=== PATIENT | female | born 1945 | race African-American/Black ===

== ENCOUNTER 2022-05-15 22:08 | Inpatient (IN) | payer MEDICARE ==
[~2022-05-15] VITALS: Ht 165.1 cm; Wt 80.0 kg
[2022-05-15] MEDS ORDERED: SODIUM CHLORIDE 0.9% 1,000 ML IV ONE (22:45)
[2022-05-16 02:50] LABS: EOSINOPHILS % 0.4 % (0.0-5.0); HEMATOCRIT. 33.2 % (36.0-48.0); LYMPHOCYTES % 16.2 % (20.0-50.0); MEAN CORPUSCULAR HEMOGLOBIN 26.3 pg (28.0-32.0); MEAN CORPUSCULAR VOLUME 79.5 fL (81.0-99.0); MEAN PLATELET VOLUME 9.1 fl (7.4-10.4); NEUTROPHILS % 76.4 % (40.0-76.0); PLATELET 198 x1000/uL (130-400); RED BLOOD CELL COUNT 4.18 mill/uL (4.2-5.4); RED CELL DISTRIBUTION WIDTH 14.5 % (11.6-14.6)
[2022-05-16 03:54] LABS: CHLORIDE 107 mEq/L (98-107)
[2022-05-16 10:24] LABS: CLARITY URINE CLEAR (CLEAR); COLOR URINE YELLOW (YELLOW); KETONES URINE NEGATIVE (NEGATIVE); LEUKOCYTE ESTERASE URINE NEGATIVE (NEGATIVE); NITRITE URINE NEGATIVE (NEGATIVE); OCCULT BLOOD URINE NEGATIVE (NEGATIVE); PH URINE 5.5 (4.5-8.0); PROTEIN URINE 2+ (NEGATIVE); SPECIFIC GRAVITY URINE 1.018 (1.005-1.030); UROBILINOGEN URINE 0.2 E.U./dL (0.2-1.0)
[2022-05-16] MEDS ORDERED: ONDANSETRON HCL 4MG/2ML INJ IV PRN (16:15)
[2022-05-16] MEDS ORDERED: IPRATROPIUM/ALBUTEROL 0.5-3(2.5)MG/3ML NEB HHN PRN (16:15)
[2022-05-16] MEDS ORDERED: ACETAMINOPHEN 325MG TABLET PO PRN (16:15)
[2022-05-16 21:53] VITALS: BP 161/79
[2022-05-16] MEDS: BLOOD SUGAR DIAGNOSTIC STRIP TEST SCH (21:57)
[2022-05-16] MEDS ORDERED: DEXTROSE 50% WATER 50ML SYRINGE IV PRN (22:00)
[2022-05-16] MEDS: INSULIN LISPRO 100 UNITS/ML SUBCUT SCH (22:10)
[2022-05-16 23:15] VITALS: BP 161/79
[2022-05-16] MEDS ORDERED: PNEUMOCOCCAL 23-VAL P-SAC VAC 0.5 ML IM ONE (23:30)
[2022-05-16 23:57] LABS: CREATINE KINASE MB FRACTION 3.8 ng/mL (0.5-3.6)
[2022-05-17] VITALS (8 sets, daily range): BP systolic 120–173; BP diastolic 71–91
[2022-05-17] MEDS: CLONIDINE 0.1MG TABLET PO PRN (00:55)
[2022-05-17] MEDS: BLOOD SUGAR DIAGNOSTIC STRIP TEST SCH ×4 (06:24→21:22)
[2022-05-17] MEDS: INSULIN LISPRO 100 UNITS/ML SUBCUT SCH ×4 (07:34→21:24)
[2022-05-17] MEDS ORDERED: LISI-186 PO (15:52)
[2022-05-17] MEDS ORDERED: CHOL400D7 PO (15:52)
[2022-05-17] MEDS ORDERED: AMLO10TA80 PO (15:52)
[2022-05-17] MEDS ORDERED: LANTUSUD SUBCUT (15:52)
[2022-05-17] MEDS ORDERED: MEMA10TA55 PO (15:52)
[2022-05-17] MEDS ORDERED: BECL10.62 INH (15:52)
[2022-05-17] MEDS ORDERED: TOLT2CAP21 PO (15:52)
[2022-05-17] MEDS ORDERED: DONE5TAB33 PO (15:53)
[2022-05-18 04:00] VITALS: BP 150/85
[2022-05-18] MEDS: BLOOD SUGAR DIAGNOSTIC STRIP TEST SCH ×4 (06:40→21:12)
[2022-05-18] MEDS: INSULIN LISPRO 100 UNITS/ML SUBCUT SCH ×4 (06:43→21:22)
[2022-05-18 08:00] VITALS: BP_SYST 135; BP_SYST 147; BP_DIAS 69; BP_DIAS 76
[2022-05-18 12:00] VITALS: BP 122/80
[2022-05-18 14:51] VITALS: BP 18/125
[2022-05-18 16:00] VITALS: BP 135/89
[2022-05-18 20:00] VITALS: BP 110/76
[2022-05-19] VITALS (7 sets, daily range): BP systolic 107–163; BP diastolic 61–106
[2022-05-19 01:27] LABS: EOSINOPHILS % 2.1 % (0.0-5.0); HEMATOCRIT. 32.4 % (36.0-48.0); HEMOGLOBIN. 10.8 g/dL (12.0-16.0); MEAN CORPUSCULAR HEMOGLOBIN 26.5 pg (28.0-32.0); MEAN CORPUSCULAR VOLUME 79.6 fL (81.0-99.0); MEAN PLATELET VOLUME 9.5 fl (7.4-10.4); MONOCYTES % 9.1 % (2.0-8.0); NEUTROPHILS % 62.8 % (40.0-76.0); PLATELET 153 x1000/uL (130-400); RED BLOOD CELL COUNT 4.07 mill/uL (4.2-5.4); RED CELL DISTRIBUTION WIDTH 14.6 % (11.6-14.6)
[2022-05-19 01:30] LABS: CHLORIDE 107 mEq/L (98-107)
[2022-05-19] MEDS: BLOOD SUGAR DIAGNOSTIC STRIP TEST SCH ×4 (06:57→20:57)
[2022-05-19] MEDS: INSULIN LISPRO 100 UNITS/ML SUBCUT SCH ×4 (07:03→21:03)
[2022-05-19] MEDS: CLONIDINE 0.1MG TABLET PO PRN (14:12)
[2022-05-20] VITALS: BP 115/66
[2022-05-20 04:00] VITALS: BP 122/62
[2022-05-20] MEDS: INSULIN LISPRO 100 UNITS/ML SUBCUT SCH ×4 (07:05→21:44)
[2022-05-20] MEDS: BLOOD SUGAR DIAGNOSTIC STRIP TEST SCH ×4 (07:05→21:44)
[2022-05-20 08:33] VITALS: BP 107/68
[2022-05-20 12:00] VITALS: BP 136/67
[2022-05-20 16:00] VITALS: BP 133/69
[2022-05-20 20:00] VITALS: BP 145/72
[2022-05-21] VITALS: BP 135/63
[2022-05-21 04:00] VITALS: BP 133/66
[2022-05-21] MEDS: BLOOD SUGAR DIAGNOSTIC STRIP TEST SCH ×4 (06:04→21:00)
[2022-05-21] MEDS: INSULIN LISPRO 100 UNITS/ML SUBCUT SCH ×4 (06:04→22:48)
[2022-05-21 08:00] VITALS: BP 139/85
[2022-05-21 11:29] VITALS: BP 143/73
[2022-05-21 15:38] VITALS: BP 139/71
[2022-05-21 22:00] VITALS: BP 158/81
[2022-05-22] VITALS: BP 144/72
[2022-05-22 04:00] VITALS: BP 145/72
[2022-05-22] MEDS: BLOOD SUGAR DIAGNOSTIC STRIP TEST SCH ×4 (05:38→21:00)
[2022-05-22] MEDS: INSULIN LISPRO 100 UNITS/ML SUBCUT SCH ×4 (06:26→21:12)
[2022-05-22 08:00] VITALS: BP 151/79
[2022-05-22 12:00] VITALS: BP 152/84
[2022-05-22 16:00] VITALS: BP 162/78
[2022-05-22] MEDS: CLONIDINE 0.1MG TABLET PO PRN (16:35)
[2022-05-22 20:00] VITALS: BP 130/67
[2022-05-23] VITALS: BP 130/77
[2022-05-23 04:00] VITALS: BP 133/70
[2022-05-23] MEDS: BLOOD SUGAR DIAGNOSTIC STRIP TEST SCH ×4 (05:42→21:11)
[2022-05-23] MEDS: INSULIN LISPRO 100 UNITS/ML SUBCUT SCH ×4 (06:13→21:14)
[2022-05-23 08:00] VITALS: BP 168/72
[2022-05-23 12:00] VITALS: BP 126/72
[2022-05-23 16:00] VITALS: BP 128/68
[2022-05-23 20:00] VITALS: BP 130/72
[2022-05-23 20:59] LABS: BASOPHILS % 1.1 % (0.0-2.0); EOSINOPHILS % 2.8 % (0.0-5.0); HEMATOCRIT. 32.4 % (36.0-48.0); HEMOGLOBIN. 10.4 g/dL (12.0-16.0); LYMPHOCYTES % 31.3 % (20.0-50.0); MEAN CORPUSCULAR HEMOGLOBIN 26.1 pg (28.0-32.0); MEAN CORPUSCULAR VOLUME 81.1 fL (81.0-99.0); MEAN PLATELET VOLUME 9.6 fl (7.4-10.4); NEUTROPHILS % 51.8 % (40.0-76.0); PLATELET 118 x1000/uL (130-400); RED CELL DISTRIBUTION WIDTH 14.2 % (11.6-14.6)
[2022-05-24] VITALS: BP 142/81
[2022-05-24 04:00] VITALS: BP 137/80
[2022-05-24] MEDS: BLOOD SUGAR DIAGNOSTIC STRIP TEST SCH ×4 (05:45→21:06)
[2022-05-24] MEDS: INSULIN LISPRO 100 UNITS/ML SUBCUT SCH ×4 (05:45→21:20)
[2022-05-24 08:00] VITALS: BP 135/84
[2022-05-24 12:00] VITALS: BP 139/81
[2022-05-24 16:00] VITALS: BP 133/74
[2022-05-24 20:00] VITALS: BP 150/77
[2022-05-25] VITALS: BP 128/74
[2022-05-25 04:00] VITALS: BP 144/76
[2022-05-25] MEDS: INSULIN LISPRO 100 UNITS/ML SUBCUT SCH ×4 (06:02→21:00)
[2022-05-25] MEDS: BLOOD SUGAR DIAGNOSTIC STRIP TEST SCH ×4 (06:02→21:00)
[2022-05-25 08:00] VITALS: BP 147/78
[2022-05-25 12:00] VITALS: BP 149/74
[2022-05-25 16:00] VITALS: BP 163/78
[2022-05-25 20:00] VITALS: BP 151/72
[2022-05-26] VITALS: BP 139/79
[2022-05-26 04:00] VITALS: BP 139/82
[2022-05-26] MEDS: INSULIN LISPRO 100 UNITS/ML SUBCUT SCH ×4 (06:39→21:53)
[2022-05-26] MEDS: BLOOD SUGAR DIAGNOSTIC STRIP TEST SCH ×4 (06:39→21:13)
[2022-05-26 08:00] VITALS: BP 140/62
[2022-05-26 12:00] VITALS: BP 139/70
[2022-05-26 16:00] VITALS: BP 138/75
[2022-05-26 20:00] VITALS: BP 148/78
[2022-05-26 21:03] LABS: BASOPHILS % 0.9 % (0.0-2.0); EOSINOPHILS % 2.6 % (0.0-5.0); HEMOGLOBIN. 11.2 g/dL (12.0-16.0); LYMPHOCYTES % 29.5 % (20.0-50.0); MEAN CORPUSCULAR HEMOGLOBIN 26.4 pg (28.0-32.0); MEAN CORPUSCULAR VOLUME 80.6 fL (81.0-99.0); MEAN PLATELET VOLUME 10.2 fl (7.4-10.4); MONOCYTES % 7.7 % (2.0-8.0); NEUTROPHILS % 59.3 % (40.0-76.0); PLATELET 183 x1000/uL (130-400); RED BLOOD CELL COUNT 4.23 mill/uL (4.2-5.4); RED CELL DISTRIBUTION WIDTH 14.1 % (11.6-14.6)
[2022-05-26] MEDS: FAMOTIDINE 20MG TABLET PO SCH (21:52)
[2022-05-27] VITALS: BP 142/72
[2022-05-27 04:00] VITALS: BP 140/80
[2022-05-27] MEDS: BLOOD SUGAR DIAGNOSTIC STRIP TEST SCH ×4 (06:51→20:27)
[2022-05-27] MEDS: INSULIN LISPRO 100 UNITS/ML SUBCUT SCH ×4 (06:59→20:27)
[2022-05-27 08:00] VITALS: BP 125/67
[2022-05-27 12:00] VITALS: BP 147/70
[2022-05-27 16:00] VITALS: BP 154/69
[2022-05-27 20:00] VITALS: BP 139/77
[2022-05-27] MEDS: FAMOTIDINE 20MG TABLET PO SCH (20:27)
[2022-05-28] VITALS: BP 147/78
[2022-05-28 04:00] VITALS: BP 150/72
[2022-05-28] MEDS: INSULIN LISPRO 100 UNITS/ML SUBCUT SCH ×4 (06:28→20:29)
[2022-05-28] MEDS: BLOOD SUGAR DIAGNOSTIC STRIP TEST SCH ×4 (06:28→20:24)
[2022-05-28 08:00] VITALS: BP 147/82
[2022-05-28 12:00] VITALS: BP 148/75
[2022-05-28 16:00] VITALS: BP 144/74
[2022-05-28 20:00] VITALS: BP 139/76
[2022-05-28] MEDS: FAMOTIDINE 20MG TABLET PO SCH (20:24)
[2022-05-29] VITALS: BP 139/82
[2022-05-29 04:00] VITALS: BP 137/79
[2022-05-29] MEDS: BLOOD SUGAR DIAGNOSTIC STRIP TEST SCH ×4 (06:27→21:18)
[2022-05-29] MEDS: INSULIN LISPRO 100 UNITS/ML SUBCUT SCH ×4 (06:28→21:19)
[2022-05-29 08:00] VITALS: BP 141/79
[2022-05-29 12:00] VITALS: BP 136/85
[2022-05-29 16:00] VITALS: BP 147/83
[2022-05-29 20:03] VITALS: BP 123/80
[2022-05-29] MEDS: FAMOTIDINE 20MG TABLET PO SCH (21:18)
[2022-05-30 00:03] VITALS: BP 140/84
[2022-05-30 04:03] VITALS: BP 120/75
[2022-05-30] MEDS: BLOOD SUGAR DIAGNOSTIC STRIP TEST SCH ×4 (06:06→21:22)
[2022-05-30] MEDS: INSULIN LISPRO 100 UNITS/ML SUBCUT SCH ×4 (06:13→21:00)
[2022-05-30 06:37] LABS: BASOPHILS % 1.1 % (0.0-2.0); EOSINOPHILS % 2.2 % (0.0-5.0); HEMATOCRIT. 34.5 % (36.0-48.0); HEMOGLOBIN. 11.6 g/dL (12.0-16.0); MEAN CORPUSCULAR HEMOGLOBIN 26.5 pg (28.0-32.0); MEAN CORPUSCULAR VOLUME 78.9 fL (81.0-99.0); MONOCYTES % 7.5 % (2.0-8.0); NEUTROPHILS % 62.2 % (40.0-76.0); PLATELET 179 x1000/uL (130-400); RED BLOOD CELL COUNT 4.37 mill/uL (4.2-5.4); RED CELL DISTRIBUTION WIDTH 14.1 % (11.6-14.6)
[2022-05-30 06:53] LABS: CHLORIDE 107 mEq/L (98-107)
[2022-05-30 08:00] VITALS: BP 137/86
[2022-05-30 12:00] VITALS: BP 131/83
[2022-05-30 16:00] VITALS: BP 140/85
[2022-05-30 20:35] VITALS: BP 164/87
[2022-05-30] MEDS: CLONIDINE 0.1MG TABLET PO PRN (21:22)
[2022-05-30] MEDS: FAMOTIDINE 20MG TABLET PO SCH (21:22)
[2022-05-31] VITALS: BP 104/59
[2022-05-31 04:00] VITALS: BP 105/69
[2022-05-31] MEDS: INSULIN LISPRO 100 UNITS/ML SUBCUT SCH ×4 (06:42→21:59)
[2022-05-31] MEDS: BLOOD SUGAR DIAGNOSTIC STRIP TEST SCH ×4 (06:42→20:53)
[2022-05-31 08:00] VITALS: BP 127/70
[2022-05-31 11:55] VITALS: BP 140/65
[2022-05-31 16:00] VITALS: BP 130/73
[2022-05-31 20:00] VITALS: BP 135/75
[2022-05-31] MEDS: FAMOTIDINE 20MG TABLET PO SCH (21:45)
[2022-06-01] VITALS: BP 139/79
[2022-06-01 04:00] VITALS: BP 141/82
[2022-06-01] MEDS: BLOOD SUGAR DIAGNOSTIC STRIP TEST SCH ×4 (06:29→21:00)
[2022-06-01] MEDS: INSULIN LISPRO 100 UNITS/ML SUBCUT SCH ×4 (06:29→21:10)
[2022-06-01 08:00] VITALS: BP 133/81
[2022-06-01 12:00] VITALS: BP 130/84
[2022-06-01 16:00] VITALS: BP 142/70
[2022-06-01 20:00] VITALS: BP 147/79
[2022-06-01] MEDS: FAMOTIDINE 20MG TABLET PO SCH (21:10)
[2022-06-02] VITALS (7 sets, daily range): BP systolic 122–152; BP diastolic 69–97
[2022-06-02] MEDS: INSULIN LISPRO 100 UNITS/ML SUBCUT SCH ×4 (07:10→21:11)
[2022-06-02] MEDS: BLOOD SUGAR DIAGNOSTIC STRIP TEST SCH ×4 (07:39→21:09)
[2022-06-02] MEDS: FAMOTIDINE 20MG TABLET PO SCH (21:10)
[2022-06-03] VITALS (7 sets, daily range): BP systolic 140–161; BP diastolic 74–91
[2022-06-03] MEDS: BLOOD SUGAR DIAGNOSTIC STRIP TEST SCH ×4 (06:05→21:31)
[2022-06-03] MEDS: INSULIN LISPRO 100 UNITS/ML SUBCUT SCH ×4 (06:06→21:31)
[2022-06-03] MEDS: FAMOTIDINE 20MG TABLET PO SCH (21:29)
[2022-06-04] VITALS (7 sets, daily range): BP systolic 128–147; BP diastolic 62–88
[2022-06-04] MEDS: BLOOD SUGAR DIAGNOSTIC STRIP TEST SCH ×4 (06:05→20:52)
[2022-06-04] MEDS: INSULIN LISPRO 100 UNITS/ML SUBCUT SCH ×4 (06:05→21:20)
[2022-06-04] MEDS: FAMOTIDINE 20MG TABLET PO SCH (21:20)
[2022-06-05] VITALS: BP 129/82
[2022-06-05 04:00] VITALS: BP 141/82
[2022-06-05] MEDS: INSULIN LISPRO 100 UNITS/ML SUBCUT SCH ×4 (06:28→21:00)
[2022-06-05] MEDS: BLOOD SUGAR DIAGNOSTIC STRIP TEST SCH ×4 (06:28→21:29)
[2022-06-05 08:00] VITALS: BP 160/81
[2022-06-05] MEDS: CLONIDINE 0.1MG TABLET PO PRN (08:25)
[2022-06-05 12:00] VITALS: BP 125/68
[2022-06-05 16:00] VITALS: BP 134/78
[2022-06-05 20:00] VITALS: BP 130/70
[2022-06-05] MEDS: FAMOTIDINE 20MG TABLET PO SCH (21:30)
[2022-06-06] VITALS: BP 132/70
[2022-06-06 04:00] VITALS: BP 143/83
[2022-06-06] MEDS: INSULIN LISPRO 100 UNITS/ML SUBCUT SCH ×4 (06:09→20:56)
[2022-06-06] MEDS: BLOOD SUGAR DIAGNOSTIC STRIP TEST SCH ×4 (06:09→20:53)
[2022-06-06 08:00] VITALS: BP 128/68
[2022-06-06 12:00] VITALS: BP 143/77
[2022-06-06 16:00] VITALS: BP 149/79
[2022-06-06 20:00] VITALS: BP 168/91
[2022-06-06] MEDS: FAMOTIDINE 20MG TABLET PO SCH (20:53)
[2022-06-06] MEDS: CLONIDINE 0.1MG TABLET PO PRN (20:53)
[2022-06-07] VITALS: BP 142/69
[2022-06-07 04:00] VITALS: BP 119/68
[2022-06-07] MEDS: BLOOD SUGAR DIAGNOSTIC STRIP TEST SCH ×4 (06:04→20:17)
[2022-06-07] MEDS: INSULIN LISPRO 100 UNITS/ML SUBCUT SCH ×4 (06:05→20:18)
[2022-06-07 08:00] VITALS: BP 103/68
[2022-06-07 12:00] VITALS: BP 127/78
[2022-06-07 16:00] VITALS: BP 128/76
[2022-06-07 20:00] VITALS: BP 120/62
[2022-06-07] MEDS: FAMOTIDINE 20MG TABLET PO SCH (20:18)
[2022-06-08] VITALS: BP 114/64
[2022-06-08 04:00] VITALS: BP_SYST 131; BP_SYST 150; BP_DIAS 76; BP_DIAS 77
[2022-06-08] MEDS: BLOOD SUGAR DIAGNOSTIC STRIP TEST SCH ×4 (05:50→20:30)
[2022-06-08] MEDS: INSULIN LISPRO 100 UNITS/ML SUBCUT SCH ×4 (06:36→20:31)
[2022-06-08 08:00] VITALS: BP 143/69
[2022-06-08 12:00] VITALS: BP 150/83
[2022-06-08 20:00] VITALS: BP 154/75
[2022-06-08] MEDS: FAMOTIDINE 20MG TABLET PO SCH (20:30)
[2022-06-09] MEDS: BLOOD SUGAR DIAGNOSTIC STRIP TEST SCH ×5 (06:40→21:00)
[2022-06-09] MEDS: INSULIN LISPRO 100 UNITS/ML SUBCUT SCH ×4 (07:14→20:53)
[2022-06-09 08:00] VITALS: BP 151/83
[2022-06-09 12:00] VITALS: BP 159/94
[2022-06-09 16:00] VITALS: BP 166/97
[2022-06-09 20:00] VITALS: BP 162/89
[2022-06-09] MEDS: FAMOTIDINE 20MG TABLET PO SCH (20:35)
== END 2022-06-09 22:30 | disposition home or self-care (01) | DRG 73 ==
LOC: ER 22:08 → 8WST 05-16 05:32 → EDBEDREQ 05-16 05:36 → EDBEDREQTM 05-16 05:36 → 4WST 05-21 22:25 → 7EST 05-22 11:39 → UNDODISIN 06-09 05:29 → 5WST 06-09 06:46
PROVIDERS: ADMIT Internal Medicine; ATTEND Internal Medicine
DX: G90.8 Other disorders of autonomic nervous system (principal); U07.1 COVID-19; I10 Essential (primary) hypertension; M19.90 Unspecified osteoarthritis, unspecified site; D64.9 Anemia, unspecified; E11.9 Type 2 diabetes mellitus without complications; Z79.4 Long term (current) use of insulin; Z79.51 Long term (current) use of inhaled steroids; Z79.899 Other long term (current) drug therapy
CPT/HCPCS: 36415; 71045; 78582; 80048; 80053; 81003; 82550; 82553; 82962; 83036; 83605; 84484; 85025; 85379; 87426; 93005; 97116; 97162; 97530; 99285; A9558; J1815; J7030